=== PATIENT | male | born 1955 | race Caucasian/White ===

== ENCOUNTER → 2025-02-17 10:06 | Outpatient (REF) | payer OTHER, SELFPAY ==
--- NOTE | 2025-02-17 11:37 | CARDSERVDEF ---
Echocardiogram with Definity completed after protocol screening completed. Allergies verified.
Patent IV site: _Left antecubital 22 G PC____
IV site flushed with 0.9% NaCl pre and post administration.
Diluted bolus method utilized to enhance visualization of ventricular parks.
Total volume given: ___3_ mL
Patient tolerated all procedures well without complications.
Heplock D/C ed at 1134, site clear, no redness, no edema. Pressure held for few minutes as on anticoagulants. No bleeding, 2x2 applied and taped. Pt offers no complaints.
== END ==
LOC: RCS 10:06
PROVIDERS: ATTENDING PHYSICIAN Internal Medicine Cardiovascular Disease; FAMILY PHYSICIAN Family Medicine
DX: I50.20 Unspecified systolic (congestive) heart failure (principal); I48.0 Paroxysmal atrial fibrillation; I42.8 Other cardiomyopathies
CPT/HCPCS: 93306; Q9957